=== PATIENT | male | born 1975 | race Caucasian/White ===

== ENCOUNTER 2019-08-15 11:19 | Emergency (ER) | payer BC, OTHER ==
[2019-08-15 11:38] LABS: ABSOLUTE BASOPHILS # (AUTO) 0.1 10^3/uL (0.0-0.2); ABSOLUTE EOSINOPHILS # (AUTO) 0.1 10^3/uL (0.0-0.6); ABSOLUTE LYMPHOCYTES (AUTO) 1.7 10^3/uL (0.5-4.7); ABSOLUTE MONOCYTES (AUTO) 0.4 10^3/uL (0.1-1.4); ABSOLUTE NEUT (AUTO) 4.2 10^3/uL (1.7-8.2); EOSINOPHILS % (AUTO) 1.4 % (0-6); HEMATOCRIT 46.3 % (37.9-51.0); HEMOGLOBIN 16.1 g/dL (13.5-17.0); LYMPHOCYTES % (AUTO) 26.1 % (13-45); MEAN CORPUSCULAR HEMOGLOBIN 30.4 pg (27.0-33.4); MEAN CORPUSCULAR HGB CONC 34.8 g/dL (32.0-36.0); MEAN CORPUSCULAR VOLUME 88 fl (80-97); MONOCYTES % (AUTO) 6.8 % (3-13); PLATELET COUNT 252 10^3/uL (150-450); RED BLOOD COUNT 5.28 10^6/uL (4.35-5.55); RED CELL DISTRIBUTION WIDTH 13.5 % (11.5-14.0); SEGMENTED NEUTROPHILS % (AUTO) 64.7 % (42-78); TOTAL CELLS COUNTED % (AUTO) 100 %; WHITE BLOOD COUNT 6.5 10^3/uL (4.0-10.5)
[2019-08-15] MEDS ORDERED: KETOROLAC TROMETHAMINE INJ/PF 30 MG/1 ML SDV IV ONE (11:47)
[2019-08-15] MEDS ORDERED: NORMAL SALINE 1000 ML 1,000 ML IV ONE (11:47)
[2019-08-15 11:55] LABS: ALBUMIN 4.3 g/dL (3.5-5.0); ALKALINE PHOSPHATASE 140 U/L (38-126); ANION GAP 9 (5-19); ASPARTATE AMINO TRANSFERASE 25 U/L (17-59); BILIRUBIN,TOTAL 0.7 mg/dL (0.2-1.3); BLOOD UREA NITROGEN 11 mg/dL (7-20); CALCIUM 9.2 mg/dL (8.4-10.2); CARBON DIOXIDE 24 mmol/L (22-30); CHLORIDE 104 mmol/L (98-107); CREATINE KINASE 201 U/L (55-170); GLUCOSE 110 mg/dL (75-110); POTASSIUM 3.7 mmol/L (3.6-5.0); TOTAL PROTEIN 7.4 g/dL (6.3-8.2)
[2019-08-15] MEDS ORDERED: METOPROLOL TARTRATE PF/INJ 5 MG/5 ML SDV IV ONE ×2 (11:59→12:30)
--- NOTE | 2019-08-15 12:00 | ER Document Report ---
Entered by SHANIQUA PUENTE SCRIBE 08/15/19 1158 Acting as scribe for:YVONNE WASHINGTON MD ED General - General Chief Complaint: Chest Pain Stated Complaint: CHEST PAIN Time Seen by Provider: 08/15/19 11:35 Primary Care Provider: KERRIE HARRIS [NO BECKIE MD] - Follow up as needed Mode of Arrival: Ambulatory Information source: Patient Notes: This 43-year-old male patient presents to the emergency department today with complaints of chest pain which began today around 10:00 AM while he was on a riding lawnmower cutting his grass. Patient reports that the initial pain that he felt was like someone "hit me hard right in the chest and it burned". Patient states he was not short of breath initially. Patient reports that he walked inside his house and felt "really hot" so he laid down in bed, took off his shirt, took 2 Tylenol, and drank some water. Patient states he began noticing that his bilateral elbows hurt and he had bilateral fingertip numbness. Patient states he called his sister, walked outside, and then became weak and fell to the ground just prior to EMS arriving. On arrival here the patient was on a nitroglycerin drip at 30 mics. Medics reported that he stated the pain improved somewhat with the nitroglycerin, but is still present. Patient was given 4 baby aspirin. His initial blood pressure was 204/110. - Related Data Allergies/Adverse Reactions: No Known Allergies Allergy (Unverified 08/15/19 14:28) Past Medical History - General Information source: Patient - Social History Smoking Status: Current Every Day Smoker Cigarette use (# per day): Yes Chew tobacco use (# tins/day): No Frequency of alcohol use: None Drug Abuse: None Lives with: Family Family History: Reviewed & Not Pertinent Patient has homicidal ideation: No - Past Medical History Cardiac Medical History: Reports: Hx Hypertension - "White coat syndrome" Surgical Hx: Negative Review of Systems - Review of Systems Constitutional: No symptoms reported EENT: No symptoms reported Cardiovascular: See HPI, Chest pain Respiratory: See HPI, Short of breath Gastrointestinal: No symptoms reported Genitourinary: No symptoms reported Male Genitourinary: No symptoms reported Musculoskeletal: No symptoms reported Skin: No symptoms reported Hematologic/Lymphatic: No symptoms reported Neurological/Psychological: No symptoms reported -: Yes All other systems reviewed and negative Physical Exam - Vital signs Vitals: Pulse Ox 98 08/15/19 11:20 - Notes Notes: Physical Exam: General: Alert, appears anxious. HEENT: Normocephalic. Atraumatic. PERRL. Extraocular movements intact. Orophar ynx clear. Neck: Supple. Non-tender. Respiratory: No respiratory distress. Clear and equal breath sounds bilaterally. Reproducible chest pain, tenderness with palpation over the sternum and later ally off to the left. Cardiovascular: Regular rate and rhythm. Abdominal: Normal Inspection. Non-tender. No distension. Normal Bowel Sounds. Back: No gross abnormalities. Extremities: Moves all four extremities. Upper extremities: Normal inspection. Normal ROM. Lower extremities: Normal inspection. No edema. Normal ROM. Neurological: Normal cognition. AAOx4. Normal speech. Psychological: anxious Skin: Warm. Dry. Normal color. Course - Re-evaluation Re-evalutation: 08/15/19 14:14 The patient was on 30 mics of nitroglycerin and continue to have chest pain with a blood pressure of 150 systolic. He was given Lopressor 5 mg IV, and got immediate relief of his pain. He was given a repeat dose of Lopressor 5 mg IV when his pressure continued to remain in the 150 systolic range. He was not given a third dose of IV Lopressor as his pulse was remaining in the 60-64 range, he was given an oral dose of Lopressor 50mg. 08/15/19 14:18 Rhiannon called back and told me a Dr. Cecilio Guadarrama would be accepting the patient. The patient's repeat troponin came back and has gone from 0.224 up to 0.633 08/15/19 14:45 Transport is here for the patient. I just spoke with him a few minutes ago, and he reported that he was pain-free at that time. His blood pressure is 149/98, his pulse is 67, his pulse oximetry reading is 96%. He is stable for transfer. - Vital Signs Vital signs: Temp Pulse Resp BP Pulse Ox 97.6 F 19 152/100 H 98 08/15/19 12:02 08/15/19 14:21 08/15/19 14:21 08/15/19 14:21 - Laboratory Result Diagrams: 08/15/19 11:28 08/15/19 11:28 Laboratory results interpreted by me: 08/15/19 11:28 Sodium 136.8 L Alkaline Phosphatase 140 H Creatine Kinase 201 H - Diagnostic Test Radiology reviewed: Image reviewed, Reports reviewed - Chest x-ray does not show acute cardio pulmonary abnormalities. - EKG Interpretation by Me EKG shows normal: Sinus rhythm, [place], QRS Complexes, ST-T Waves. abnormal: Intervals - Borderline prolonged QT interval Rate: Normal - 74 Rhythm: NSR When compared to previous EKG there are: Previous EKG unavailable Critical Care Note - Critical Care Note Total time excluding time spent on procedures (mins): 35 Comments: At least 35 minutes spent evaluating the patient, getting history and physical, reevaluating multiple times after each medication dose. Phone calls to transfer center. Discharge - Discharge Clinical Impression: Non-STEMI (non-ST elevated myocardial infarction), Chest wall pain High blood pressure Qualifiers: Hypertension type: essential hypertension Qualified Code(s): I10 - Essential (primary) hypertension Condition: Good Disposition: [facility] Referrals: LOCALMD,NO [NO LOCAL MD] - Follow up as needed I personally performed the services described in the documentation, reviewed and edited the documentation which was dictated to the scribe in my presence, and it accurately records my words and actions.
[2019-08-15] MEDS ORDERED: NITROGLYCERIN/D5W 50 MG/250 ML RTUINJ IV PRN (12:01)
[2019-08-15 12:08] LABS: CREATINE KINASE MB 3.6 ng/mL (<4.55)
[2019-08-15 12:12] LABS: TROPONIN I 0.224 ng/mL
--- NOTE | 2019-08-15 12:17 | RADIOLOGY REPORT (SQ) ---
EXAM DESCRIPTION: CHEST SINGLE VIEW IMAGES COMPLETED DATE/TIME: 08/15/2019 11:02 am REASON FOR STUDY: chest pain COMPARISON: None. EXAM PARAMETERS: NUMBER OF VIEWS: One view. TECHNIQUE: Single frontal radiographic view of the chest acquired. RADIATION DOSE: NA LIMITATIONS: None. FINDINGS: LUNGS AND PLEURA: No opacities, masses or pneumothorax. No pleural effusion. MEDIASTINUM AND HILAR STRUCTURES: No masses. Contour normal. HEART AND VASCULAR STRUCTURES: Heart normal in size. Normal vasculature. BONES: No acute findings. HARDWARE: None in the chest. OTHER: No other significant finding. IMPRESSION: NO ACUTE RADIOGRAPHIC FINDING IN THE CHEST. TECHNICAL DOCUMENTATION: JOB ID: [id number] 2010 [employer]- All Rights Reserved Reading location - IP/workstation name: [email or web address]
[2019-08-15] MEDS ORDERED: ENOXAPARIN SODIUM INJ 120 MG/0.8 ML DISP.SYRIN SUBCUT ONE (13:12)
[2019-08-15] MEDS ORDERED: CLOPIDOGREL BISULFATE 300 MG TABLET PO ONE (13:13)
--- NOTE | 2019-08-15 13:19 | EKG REPORT ---
SEVERITY:- BORDERLINE ECG - SINUS RHYTHM BORDERLINE PROLONGED QT INTERVAL : Confirmed by: Kulwinder Serra 15-Aug-2019 13:19:13
[2019-08-15] MEDS ORDERED: METOPROLOL TARTRATE 50 MG TABLET PO ONE (14:14)
[2019-08-15 14:27] VITALS: BP 152/100
== END 2019-08-15 15:08 | disposition short-term general hospital (02) ==
LOC: ER 11:19
DX: I21.4 Non-ST elevation (NSTEMI) myocardial infarction (principal); R07.89 Other chest pain; R06.02 Shortness of breath; F17.210 Nicotine dependence, cigarettes, uncomplicated
CPT/HCPCS: 93005; 99291; 96372; 96361; 96375; 96365; 36415; 82553; 82550; 85025; 80053; 84484; 71045; 93010; J3490 ×3; J1650; J1885; J7030